=== PATIENT | male | born 1980 | race Caucasian/White ===

== ENCOUNTER 2021-02-25 15:49 | Inpatient (IN) ==
[2021-02-25] MEDS ORDERED: dexAMETHasone**PF** 10 MG/ML VIAL IV ONE (16:01)
[2021-02-25 16:28] LABS: Basophils # (auto) 0.01 K/uL (0-0.2); Basophils % (auto) 0.2 %; Hematocrit (blood only) 48.9 % (42-52); Hemoglobin 16.3 g/dL (14.0-18.0); Immature Granulocytes # (auto) 0.01 K/uL (0.00-0.02); Immature Granulocytes % (auto) 0.2 %; Lymphocytes # (auto) 1.49 K/uL (1.2-3.4); Lymphocytes % (auto) 28.4 %; Mean Corpuscular Hemoglobin 30.5 pg (25-34); Mean Corpuscular Hgb Conc 33.3 g/dL (32-36); Mean Corpuscular Volume 91.6 fL (80-100); Mean Platelet Volume 11.3 fL (7.4-10.4); Monocytes # (auto) 0.51 K/uL (0.11-0.59); Monocytes % (auto) 9.7 %; Neutrophils # (auto) 3.23 K/uL (1.4-6.5); Neutrophils % (auto) 61.5 %; Platelet Count 148 K/uL (130-400); RDW Coefficient of Variation 12.5 % (11.5-14.5); RDW Standard Deviation 42.2 fL (36.4-46.3); Red Blood Count 5.34 M/uL (4.7-6.1); White Blood Count 5.25 K/uL (4.8-10.8)
--- NOTE | 2021-02-25 16:30 | XRay Report ---
XR chest 1V portable HISTORY: Short of breath. Covid positive. COMPARISON: Chest 02/24/2021. FINDINGS: No pneumothorax or no pleural effusions. The heart is normal in size. There are low lung vo lumes. Multifocal peripheral patchy airspace opacities are again noted. This likely represents a tera l pneumonia. This is similar to the prior study. IMPRESSION: Redemonstration of the multifocal bilateral airspace opacities consistent with a viral pneumonia. ACT 112: Negative or not required by law. Electronically signed by: Maikel Gutierrez M.D. 02/25/2021 4:29 PM
[2021-02-25 16:49] LABS: Alanine Aminotransferase 184 (12-78); Albumin Level 3.3 gm/dl (3.4-5.0); Aspartate Aminotransferase 202 U/L (15-37); BUN Creatinine Ratio 11.1 (10-20); Blood Urea Nitrogen 11 mg/dl (7-18); Carbon Dioxide 29 mmol/L (21-32); Chloride 98 mmol/L (98-107); Creatinine Clr Calc Pharmacy 136.3 ml/min; Est GFR (African American) 107.9 ml/min; Est GFR (Non-African American) 93.1 ml/min; Glucose 114 mg/dl (70-99); Potassium 4.3 mmol/L (3.5-5.1); Sodium 133 mmol/L (136-145)
[2021-02-25 16:53] LABS: Albumin Globulin Ratio 0.8 (0.9-2); Alkaline Phosphatase 45 U/L (45-117); Bilirubin,Total 0.4 mg/dl (0.2-1); C Reactive Protein 6.58 mg/dl (0-0.29); Globulin 4.1 gm/dl (2.5-4.0); Total Protein 7.4 gm/dl (6.4-8.2); Troponin I < 0.015 ng/ml (0-0.045)
--- NOTE | 2021-02-25 17:12 | Emergency Department Note ---
History of Present Illness General Chief complaint: Respiratory Problems Stated complaint: COVID+, WAS ASKED TO RETURN TO ER TODAY Time Seen by Provider: 02/25/21 16:01 Source: patient Mode of arrival: ambulatory Limitations: no limitations History of Present Illness This patient is a 40-year-old male who presents to the emergency department for evaluation of COVID-19 and shortness of breath. Patient states that his symptoms started 4 days ago. He has had shortness of breath, body aches and cough. He was here yesterday and had a COVID-19 test which was positive, however he left the waiting room prior to being seen by provider. He has not been vaccinated for COVID-19. He has been taking Tylenol as needed for fevers. He denies any chest pain. Home Medications Medication Instructions Recorded Confirmed Type No Known Home Medications 02/25/21 02/25/21 History Allergies Allergy/AdvReac Type Severity Reaction Status Date / Time Penicillins Allergy Unknown Had a Unverified 02/25/21 16:59 reaction as a baby, but has had it since without one Past Med/Surg History Medical History No significant past medical history Social History Smoking Status: Never smoker Feels Safe at Home: Yes Review of Systems A total of 10 systems reviewed and were otherwise negative Physical Exam Vital Signs Vital Signs - 24 hr 02/25/21 15:58 02/25/21 16:01 02/25/21 16:10 Temperature 36.6 C Temperature Source Temporal Artery Scan Pulse Rate 99 H Respiratory Rate 18 Blood Pressure 121/79 Blood Pressure Mean 93 Pulse Oximetry 87 L 87 L 94 Oxygen Delivery Method Room Air Room Air Nasal Cannula Oxygen Flow Rate 2 Sepsis Recent Fever Within 48 Hours No Sepsis New/Unexplained Change in Mental Status N/A Sepsis Action Taken by Nursing No Action Required 02/25/21 16:49 Temperature Temperature Source Pulse Rate Respiratory Rate Blood Pressure Blood Pressure Mean Pulse Oximetry 92 Oxygen Delivery Method Nasal Cannula Oxygen Flow Rate 3 Sepsis Recent Fever Within 48 Hours Sepsis New/Unexplained Change in Mental Status Sepsis Action Taken by Nursing VITALS: Vitals are noted on the nurse's note and reviewed by myself. GENERAL: This is a 40-year-old male, in no acute distress, well-developed well- nourished. SKIN: The skin was without rashes. EARS: External auditory canals clear, tympanic membranes pearly jackson without erythema or effusion bilaterally. EYES: Pupils equal round and reactive to light and accommodation. NOSE: Patent, turbinates without inflammation or discharge. No sinus tenderness. MOUTH: Mucous membranes moist. Tonsils are not enlarged. Pharynx without erythema or exudate. Uvula midline. NECK: Supple without nuchal rigidity. No lymphadenopathy. HEART: Regular rate and rhythm without murmurs gallops or rubs. LUNGS: Coarse breath sounds throughout. Diminished breath sounds in bilateral bases. EXTREMITIES: No pitting edema of the lower extremities. NEURO: Patient was alert and oriented to person place and time. Course Administered Medications Discontinued Medications Dexamethasone Sodium Phosphate (DexamethasonePf 10 Mg/Ml Vial) 6 mg IV NOW ONE Stop: 02/25/21 16:02 Last Admin: 02/25/21 19:27 Dose: 6 mg Documented by: [id number] Medical Decision Making Differential Diagnosis COVID-19, reactive airway disease, pneumonia, pneumothorax, COPD, CHF, infections, cardiac ischemia, pulmonary embolism, musculoskeletal, gastrointestinal, as well as other pathologies. Home Medications Current Medication List: was personally reviewed by me Laboratory Data Attestation: I reviewed the patient's lab results. Result diagrams: 02/25/21 16:11 02/25/21 16:11 Lab Results 02/25/21 02/25/21 02/25/21 Range/Units 16:11 16:11 16:11 WBC 5.25 (4.8-10.8) K/uL RBC 5.34 (4.7-6.1) M/uL Hgb 16.3 (14.0-18.0) g/dL Hct 48.9 (42-52) % MCV 91.6 (80-100) fL MCH 30.5 (25-34) pg MCHC 33.3 (32-36) g/dL RDW Std Deviation 42.2 (36.4-46.3) fL RDW Coeff of Nazario 12.5 (11.5-14.5) % Plt Count 148 (130-400) K/uL MPV 11.3 H (7.4-10.4) fL Immature Gran % (Auto) 0.2 % Neut % (Auto) 61.5 % Lymph % (Auto) 28.4 % Page % (Auto) 9.7 % Eos % (Auto) 0.0 % Baso % (Auto) 0.2 % Neut # (Auto) 3.23 (1.4-6.5) K/uL Lymph # (Auto) 1.49 (1.2-3.4) K/uL Page # (Auto) 0.51 (0.11-0.59) K/uL Eos # (Auto) 0.00 (0-0.5) K/uL Baso # (Auto) 0.01 (0-0.2) K/uL Immature Gran # (Auto) 0.01 (0.00-0.02) K/uL Sodium 133 L (136-145) mmol/L Potassium 4.3 (3.5-5.1) mmol/L Chloride 98 (98-107) mmol/L Carbon Dioxide 29 (21-32) mmol/L Anion Gap 6.0 (3-11) BUN 11 (7-18) mg/dl Creatinine 1.00 (0.6-1.4) mg/dl Est Cr Clr Drug Dosing 136.3 ml/min Est GFR ( Amer) 107.9 ml/min Est GFR (Non-Af Amer) 93.1 ml/min BUN/Creatinine Ratio 11.1 (10-20) Glucose 114 H (70-99) mg/dl Calcium 9.0 (8.5-10.1) mg/dl Total Bilirubin 0.4 (0.2-1) mg/dl AST 202 H (15-37) U/L ALT 184 H (12-78) Alkaline Phosphatase 45 (45-117) U/L Troponin I < 0.015 (0-0.045) ng/ml C-Reactive Protein 6.58 H (0-0.29) mg/dl Total Protein 7.4 (6.4-8.2) gm/dl Albumin 3.3 L (3.4-5.0) gm/dl Globulin 4.1 H (2.5-4.0) gm/dl Albumin/Globulin Ratio 0.8 L (0.9-2) Procalcitonin 0.12 (0-0.5) ng/ml Hep Bs Antigen (Neg) Hepatitis C Antibody (Neg) 12/30/21 Range/Units 16:11 WBC (4.8-10.8) K/uL RBC (4.7-6.1) M/uL Hgb (14.0-18.0) g/dL Hct (42-52) % MCV (80-100) fL MCH (25-34) pg MCHC (32-36) g/dL RDW Std Deviation (36.4-46.3) fL RDW Coeff of Nazario (11.5-14.5) % Plt Count (130-400) K/uL MPV (7.4-10.4) fL Immature Gran % (Auto) % Neut % (Auto) % Lymph % (Auto) % Page % (Auto) % Eos % (Auto) % Baso % (Auto) % Neut # (Auto) (1.4-6.5) K/uL Lymph # (Auto) (1.2-3.4) K/uL Page # (Auto) (0.11-0.59) K/uL Eos # (Auto) (0-0.5) K/uL Baso # (Auto) (0-0.2) K/uL Immature Gran # (Auto) (0.00-0.02) K/uL Sodium (136-145) mmol/L Potassium (3.5-5.1) mmol/L Chloride (98-107) mmol/L Carbon Dioxide (21-32) mmol/L Anion Gap (3-11) BUN (7-18) mg/dl Creatinine (0.6-1.4) mg/dl Est Cr Clr Drug Dosing ml/min Est GFR ( Amer) ml/min Est GFR (Non-Af Amer) ml/min BUN/Creatinine Ratio (10-20) Glucose (70-99) mg/dl Calcium (8.5-10.1) mg/dl Total Bilirubin (0.2-1) mg/dl AST (15-37) U/L ALT (12-78) Alkaline Phosphatase (45-117) U/L Troponin I (0-0.045) ng/ml C-Reactive Protein (0-0.29) mg/dl Total Protein (6.4-8.2) gm/dl Albumin (3.4-5.0) gm/dl Globulin (2.5-4.0) gm/dl Albumin/Globulin Ratio (0.9-2) Procalcitonin (0-0.5) ng/ml Hep Bs Antigen Neg (Neg) Hepatitis C Antibody Neg (Neg) Imaging Data Attestation: I personally reviewed and interpreted this imaging study as follows: Radiologist's Impression: Chest X-Ray 02/25/21 16:02 XR chest 1V portable HISTORY: Short of breath. Covid positive. COMPARISON: Chest 02/24/2021. FINDINGS: No pneumothorax or no pleural effusions. The heart is normal in size. There are low lung volumes. Multifocal peripheral patchy airspace opacities are again noted. This likely represents a viral pneumonia. This is similar to the prior study. IMPRESSION: Redemonstration of the multifocal bilateral airspace opacities consistent with a viral pneumonia. ACT 112: Negative or not required by law. Electronically signed by: Maikel Gutierrez M.D. 02/25/2021 4:29 PM MDM Narrative Continuous patient monitor: Order was placed for continuous patient monitor. Patient was placed on the patient monitor. Patient was noted to be in normal sinus rhythm at an initial rate of 90 bpm. The patient is a 40-year-old male who presents today complaining of shortness of breath. Patient was in the emergency department yesterday, was triaged and received a COVID-19 test but left prior to seeing a provider. His COVID-19 test was found to be positive at that time. Patient is here today due to shortness of breath. He was found to be hypoxic with an oxygen saturation of 87% on room air. Patient was placed on oxygen via nasal cannula with improvement. Labs revealed a transaminitis, most likely due to the COVID-19 infection. Chest x-ray is consistent with multifocal pneumonia. Due to patient's hypoxia, consultation was placed with the [facility] hospitalist service. Impression & Plan COVID-19, Acute respiratory failure with hypoxia, Transaminitis Discharge Plan Visit Data Chief Complaint: Respiratory Problems Stated Complaint: COVID+, WAS ASKED TO RETURN TO ER TODAY ED Provider: Willie Doss ED Midlevel Provider: Dania Charles Discharge Problem: COVID-19, Acute respiratory failure with hypoxia, Transaminitis Discharge Instructions Interventions: ED Discharge Assessment Last Done: 02/25/21 19:39
--- NOTE | 2021-02-25 17:25 | History & Physical Report ---
Date of Service February 25, 2021 Assessment & Plan (1) Acute respiratory failure with hypoxia: Plan: Acute hypoxic respiratory failure 2/2 COVID-19 pneumonia No leukocytosis Mild hyponatremia to 133. Suspect nutritional with decreased p.o. intake for last few days, defer SIADH fluid restriction at this time. Transaminitis as below Troponin negative CRP elevated to 6.58 Procalcitonin pending CXR:multifocal bilateral airspace opacities consistent with a viral pneumonia. Admit on dexamethasone Covid Lovenox prophylaxis Remdesivir deferred due to transaminitisbaricitinib not indicated at this time CTA deferred at time of admission, threshold if clinically worsening (2) Transaminitis: Plan: Transaminitis AST/ALT 202/184. No history of prior liver disease Patient i is approximately 12 beers through the weekend reports does not drink and is alcohol free through the week T bili and alk phos normal Weekend alcohol use Ultrasound liver pending Acute hepatitis panel pending CMP daily (3) COVID-19: Plan: As above Plan: DVT prophylaxis: Covid dosed Lovenox as above Diet: Regular Disposition: Medical surgical CODE STATUS: Full code History of Present Illness Chief Complaint: COVID Primary Care Provider: NO PCP Willie Gillespie is a 40-year-old male with no prior past medical history who presents with acute hypoxic respiratory failure 2/2 Covid pneumonia, unvaccinated. Symptom onset approximately 02/21/2021 (approximately day 5 at presentation to ER) Hypoxic requiring 3 L of nasal cannula in ER to maintain sat greater than 88% No prior lung disease, no prior cardiac disease, no home medications Shortness of breath started first with a dry cough. Minimal clear mucous production. No fevers, sweats. Chills earlier in the week none now. No chest pain, chest pressure, palpitations. No nausea, vomiting, diarrhea, or constipation. Diminished appetite with reduced PO intake. No history of renal or hepatic disease. Has been taking Alieve 4 pills daily max, NYQUIL 1 cap in the morning and evening. no other attempted tx Medical History: Reviewed Medications: Reviewed Surgical History: Reviewed Allergies: Reviewed Social History: No tobacco use. Social alcohol use, 12 pack in a weekend none during the week. No recreational drug use. Code Status: Full Code Allergies Allergy/AdvReac Type Severity Reaction Status Date / Time Penicillins Allergy Unknown Had a Unverified 02/25/21 16:59 reaction as a baby, but has had it since without one Home Medications Medication Instructions Recorded Confirmed Type No Known Home Medications 02/25/21 02/25/21 History Past Med/Surg History Medical History No significant past medical history Social History Smoking Status: Never smoker Feels Safe at Home: Yes Review of Systems Review of Systems: All systems reviewed & are unremarkable except as noted in HPI & below Physical Exam Physical Exam: General: A&Ox3. NAD. Cooperative. HEENT: Atraumatic, normocephalic. On nasal cannula. Pupils equal and reactive to light. Acuity and hearing grossly intact. Pulm: Moderate air movement, bibasilar crackles without overt wheezes/rales. Symmetrical chest rise. No increase in work of breathing. No respiratory distress. Cardiac: RRR, -mrg. Radial pulses intact and symmetrical. Abdominal: Nontender, nondistended, soft. BS present. Extremities: Moving all extremities equally, patient ambulating independently in room. Customer Contact Representative strength, hip flexion, ankle dorsiflexion/plantar flexion 5/5 without deficit/asymmetry. Sensation is soft touch intact in hands and feet. Skin warm and dry. Results & Data Results & Data ([facility]) Vital Signs (Past 12 Hours) Vital Signs Temp Pulse Resp BP Pulse Ox 02/25/21 16:49 92 02/25/21 16:10 94 02/25/21 16:01 87 L 02/25/21 15:58 36.6 C 99 H 18 121/79 87 L PG Care Time/CCT Total # of Minutes Spent Total Time Spent with Patient: Total time spent is greater than 50% in coordination of care (as documented) at patient's floor/unit and/or counseling patient: Coding Level of Care Code 41748 Initial Inpt Care Lvl 3 Diagnoses Transaminitis R74.01 Acute respiratory failure with hypoxia J96.01 COVID-19 U07.1
[2021-02-25 18:24] LABS: Hepatitis B Surf Ag Rflx Conf Neg (Neg)
[2021-02-25 18:52] LABS: Hepatitis C IgG 13Yrs+Old_Rflx Neg (Neg)
[2021-02-25] MEDS ORDERED: ACETAMINOPHEN 325 MG TAB PO PRN (19:30)
[2021-02-25] MEDS ORDERED: ONDANSETRON INJ 2 MG/ML 2 ML VIAL IV PRN (19:30)
[2021-02-25] MEDS: ENOXAPARIN INJ 40 MG/0.4 ML SYR SQ SCH (22:51)
[2021-02-26] MEDS: ENOXAPARIN INJ 40 MG/0.4 ML SYR SQ SCH ×2 (08:00→20:57)
[2021-02-26] MEDS: dexAMETHasone 6 MG in SYRINGE 0 ML IV SCH (08:01)
--- NOTE | 2021-02-26 11:48 | Hospitalist Progress Note ---
Date of Service February 26, 2021 Assessment & Plan (1) Acute respiratory failure with hypoxia: Plan: Acute hypoxic respiratory failure 2/2 COVID-19 pneumonia sick for 7 days on admission dexamethasone 6mg IV daily repeat AST ALT today to see if they are normal, consider Remdesivir since he is within window no role for baricitinib Lasix 20mg IV daily starting tomorrow flutter valve, incentive spirometer encourage him to lay prone often (2) Transaminitis: Plan: Transaminitis AST/ALT 202/184. No history of prior liver disease Patient i is approximately 12 beers through the weekend reports does not drink and is alcohol free through the week likely from COVID repeat CMP today hold on liver US (3) COVID-19: Plan: As above dexamethasone 6mg IV daily consider Remdesivir encourage him to eat and drink Plan: DVT prophylaxis: Covid dosed Lovenox as above Diet: Regular Disposition: Medical surgical CODE STATUS: Full code Admission and Anticipated Discharge Date Admission Date: February 25, 2021 Subjective patient sitting up at edge of bed, he is up to 6L from 3L this morning no distress, he says he gets a little short of breath walking to toilet but recovers quickly has a slight cough with sputum but not often, mild dyspnea, no chest pain, no fever drinking a lot of water, not much of an appetite he confirms he is about 7 days into illness encouraged him to lay prone, will get him flutter valve and use incentive spirometer discussed that once his oxygen is down to 2-3L will get him home Review of Systems Review of Systems: All systems reviewed & are unremarkable except as noted in Subjective Respiratory: + cough, + dyspnea and + dyspnea on exertion Physical Exam Physical Exam: General: well developed, overweight male, no acute distress, comfortable Neck: supple, trachea midline, normal thyroid Lungs: clear to auscultation bilaterally, slightly tachypneic, no accessory muscle use, no distress Heart: regular S1 and S2, no murmur, peripheral pulses normal, capillary refill normal, no edema Abdomen: soft, NT, ND, + BS, no hepatomegaly, normal to percussion Extremities: normal in appearance, no cyanosis, no petechiae, strength is 5/5 bilaterally Neuro: awake, cooperative, moves all extremities, no focal motor deficits, CN II-XII intact, sensation in extremities intact, normal speech Skin: warm, dry, no rash, normal turgor Psych: Awake, alert oriented x 3, euthymic affect Results & Data Results & Data ([facility]) Vital Signs (Past 12 Hours) Vital Signs Temp Pulse Resp BP Pulse Ox 02/26/21 08:00 36.9 C 80 18 132/68 91 Medications Administered Current Inpatient Medications Acetaminophen (Acetaminophen 325 Mg Tab) 650 mg PO Q4H PRN PRN Reason: pain/fever Stop: 03/27/21 19:29 Enoxaparin Sodium (Enoxaparin Inj 40 Mg/0.4 Ml Syr) 40 mg SQ Q12H DENYS Stop: 03/27/21 20:59 Last Admin: 02/26/21 08:00 Dose: 40 mg Documented by: Dexamethasone 6 mg/ Syringe 1.5 mls @ 1 mls/min IV DAILY DENYS Stop: 03/08/21 08:59 Last Admin: 02/26/21 08:01 Dose: 1 mls/min Documented by: Ondansetron HCl (Ondansetron Inj 2 Mg/Ml 2 Ml Vial) 4 mg IV Q6H PRN PRN Reason: Nausea Stop: 03/27/21 19:29 PG Care Time/CCT Total # of Minutes Spent Total Time Spent with Patient: Total time spent is greater than 50% in coordination of care (as documented) at patient's floor/unit and/or counseling patient: Coding Level of Care Code 00692 Subseq Hosp Care Lvl 2 Diagnoses Acute respiratory failure with hypoxia J96.01 Transaminitis R74.01 COVID-19 U07.1
[2021-02-26 12:15] LABS: Albumin Globulin Ratio 0.7 (0.9-2); Albumin Level 3.2 gm/dl (3.4-5.0); Bilirubin,Total 0.5 mg/dl (0.2-1); C Reactive Protein 4.2 mg/dl (0-0.29); Calcium 9.3 mg/dl (8.5-10.1); Creatinine Clr Calc Pharmacy 128.6 ml/min; Est GFR (African American) 100.5 ml/min; Est GFR (Non-African American) 86.7 ml/min; Globulin 4.3 gm/dl (2.5-4.0); Total Protein 7.5 gm/dl (6.4-8.2)
[2021-02-27] MEDS ORDERED: MELATONIN 3 MG TAB PO PRN (04:55)
[2021-02-27] MEDS ORDERED: LORazepam 0.5 MG/1 ML VIAL IV STA (07:36)
[2021-02-27] MEDS: dexAMETHasone 6 MG in SYRINGE 0 ML IV SCH (07:42)
[2021-02-27] MEDS: FUROSEMIDE INJ 20 MG/2 ML VIAL IV SCH (07:43)
[2021-02-27] MEDS: ENOXAPARIN INJ 40 MG/0.4 ML SYR SQ SCH ×2 (07:43→20:40)
[2021-02-27 07:45] LABS: Albumin Level 3.1 gm/dl (3.4-5.0); BUN Creatinine Ratio 16.7 (10-20); Calcium 9.1 mg/dl (8.5-10.1); Creatinine Clr Calc Pharmacy 128.6 ml/min; Est GFR (African American) 100.5 ml/min; Est GFR (Non-African American) 86.7 ml/min; Potassium 4.5 mmol/L (3.5-5.1)
[2021-02-27 07:48] LABS: Albumin Globulin Ratio 0.8 (0.9-2); Bilirubin,Total 0.5 mg/dl (0.2-1); Total Protein 7.1 gm/dl (6.4-8.2)
[2021-02-27] MEDS ORDERED: LORazepam 2 MG/4 ML VIAL ONE (07:53)
--- NOTE | 2021-02-27 09:22 | XRay Report ---
XR chest 1V portable HISTORY: 40 years-old Male covid pneumonia acute shortness of breath COMPARISON: Chest radiograph 02/25/2021 TECHNIQUE: Portable AP view of the chest FINDINGS: Cardiac silhouette is enlarged. No pneumothorax. Probable trace pleural effusions. Interstitial coars ening with patchy multifocal airspace opacities, slightly progressed from prior. Degenerative changes of the shoulders and spine. IMPRESSION: Slight progression of the multifocal airspace opacities suggestive of viral pneumonia. ACT 112: Negative or not required by law. The above report was generated using voice recognition software. It may contain grammatical, syntax o r spelling errors. Electronically signed by: Michael Valenzuela M.D. 02/27/2021 9:21 AM
--- NOTE | 2021-02-27 10:05 | Electrocardiogram Report ---
Test Reason : Blood Pressure : / mmHG Vent. Rate : 100 BPM Atrial Rate : 100 BPM P-R Int : 132 ms QRS Dur : 094 ms QT Int : 334 ms P-R-T Axes : 026 038 028 degrees QTc Int : 430 ms Poor data quality, interpretation may be adversely affected Normal sinus rhythm Normal ECG When compared with ECG of 14-AUG-2017 15:23, No significant change was found Confirmed by Arnol Ndiaye ([id number]) on 02/27/2021 10:05:32 AM Referred By: REFERRED SELF Confirmed By:Arnol Ndiaye
--- NOTE | 2021-02-27 10:50 | Hospitalist Progress Note ---
Date of Service February 27, 2021 Assessment & Plan (1) Acute respiratory failure with hypoxia: Plan: Acute hypoxic respiratory failure 2/2 COVID-19 pneumonia sick for 7 days prior to admission dexamethasone 6mg IV daily AST/ALT too high for Remdesivir no role for baricitinib, CRP is only 4 Lasix 20mg IV daily starting today to keep lungs dry CXR 02/27/21 shows slight progression of infiltrates on 10L when laying prone, increased to 15L sitting in chair flutter valve, incentive spirometer encourage him to lay prone, he slept all night on his belly and doing it intermittently during the day (2) COVID-19: Plan: As above dexamethasone 6mg IV daily no Remdesivir due to transaminitis encourage him to eat and drink (3) Transaminitis: Plan: Transaminitis Patient drinks approximately 12 beers through the weekend but is alcohol free through the week likely from COVID repeat CMP shows AST/ALT coming down hold on liver US (4) Anxiety: Plan: good response to Ativan will give 0.5 PO q8 PRN Plan: DVT prophylaxis: Covid dosed Lovenox as above Diet: Regular Disposition: Medical surgical CODE STATUS: Full code Admission and Anticipated Discharge Date Admission Date: February 25, 2021 Subjective very anxious this morning, gave him Ativan 0.5mg IV x 1 he slept on his belly all night, he was 10L but had to bump him to 15L when he got OOB to chair to eat labs show CRP 4.2, Cr 1.06, K 4.5, AST 98 and ALT 134 CXR this morning shows slight progression of infiltrates he says last night was rough, he was "going crazy" told him we can try Ativan q8 PRN for anxiety, he says that would be good no cough, no fever, no chest pain, appetite is normal Review of Systems Review of Systems: All systems reviewed & are unremarkable except as noted in Subjective Physical Exam Physical Exam: General: well developed, overweight male, no acute distress, comfortable Neck: supple, trachea midline, normal thyroid Lungs: clear to auscultation bilaterally, slightly tachypneic, no accessory muscle use, no distress Heart: regular S1 and S2, no murmur, peripheral pulses normal, capillary refill normal, no edema Abdomen: soft, NT, ND, + BS, no hepatomegaly, normal to percussion Extremities: normal in appearance, no cyanosis, no petechiae, strength is 5/5 bilaterally Neuro: awake, cooperative, moves all extremities, no focal motor deficits, CN II-XII intact, sensation in extremities intact, normal speech Skin: warm, dry, no rash, normal turgor Psych: Awake, alert oriented x 3, euthymic affect Results & Data Results & Data ([facility]) Vital Signs (Past 12 Hours) Vital Signs Temp Pulse Resp BP Pulse Ox 02/27/21 08:25 36.9 C 02/27/21 07:31 38.2 C H 103 H 19 120/77 92 02/26/21 23:05 36.6 C 89 22 129/76 94 Laboratory Results Laboratory Results - last 24 hr 02/26/21 02/27/21 11:33 06:24 Sodium 133 L 134 L Potassium 5.0 D 4.5 Chloride 98 96 L Carbon Dioxide 31 32 Anion Gap 4.0 6.0 BUN 16 18 Creatinine 1.06 1.06 Est Cr Clr Drug Dosing 128.6 128.6 Est GFR ( Amer) 100.5 100.5 Est GFR (Non-Af Amer) 86.7 86.7 BUN/Creatinine Ratio 15.0 16.7 Glucose 140 H 111 H Calcium 9.3 9.1 Total Bilirubin 0.5 0.5 AST 131 H 98 H ALT 162 H 134 H Alkaline Phosphatase 48 46 C-Reactive Protein 4.20 H Total Protein 7.5 7.1 Albumin 3.2 L 3.1 L Globulin 4.3 H 4.0 Albumin/Globulin Ratio 0.7 L 0.8 L Medications Administered Current Inpatient Medications Acetaminophen (Acetaminophen 325 Mg Tab) 650 mg PO Q4H PRN PRN Reason: pain/fever Stop: 03/27/21 19:29 Last Admin: 02/27/21 07:42 Dose: 650 mg Documented by: Enoxaparin Sodium (Enoxaparin Inj 40 Mg/0.4 Ml Syr) 40 mg SQ Q12H [facility] Stop: 03/27/21 20:59 Last Admin: 02/27/21 07:43 Dose: 40 mg Documented by: Furosemide (Furosemide Inj 20 Mg/2 Ml Vial) 20 mg IV QAM [facility] Stop: 03/29/21 08:59 Last Admin: 02/27/21 07:43 Dose: 20 mg Documented by: Dexamethasone 6 mg/ Syringe 1.5 mls @ 1 mls/min IV DAILY DENYS Stop: 03/08/21 08:59 Last Admin: 02/27/21 07:42 Dose: 1 mls/min Documented by: Melatonin (Melatonin 3 Mg Tab) 3 mg PO HS PRN PRN Reason: Sleep Stop: 03/29/21 04:54 Ondansetron HCl (Ondansetron Inj 2 Mg/Ml 2 Ml Vial) 4 mg IV Q6H PRN PRN Reason: Nausea Stop: 03/27/21 19:29 PG Care Time/CCT Total # of Minutes Spent Total Time Spent with Patient: Total time spent is greater than 50% in coordination of care (as documented) at patient's floor/unit and/or counseling patient: Coding Level of Care Code 24627 Subseq Hosp Care Lvl 3 Diagnoses Acute respiratory failure with hypoxia J96.01 Transaminitis R74.01 COVID-19 U07.1 Anxiety F41.9
[2021-02-27] MEDS: LORazepam 0.5 MG TAB PO PRN (20:40)
[2021-02-28 07:04] LABS: Albumin Level 2.8 gm/dl (3.4-5.0); BUN Creatinine Ratio 23.4 (10-20); Calcium 8.8 mg/dl (8.5-10.1); Creatinine Clr Calc Pharmacy 158.5 ml/min; Est GFR (African American) 124.8 ml/min; Est GFR (Non-African American) 107.7 ml/min; Potassium 4.3 mmol/L (3.5-5.1)
[2021-02-28 07:07] LABS: Albumin Globulin Ratio 0.8 (0.9-2); Bilirubin,Total 0.5 mg/dl (0.2-1); C Reactive Protein 3.25 mg/dl (0-0.29); Globulin 3.7 gm/dl (2.5-4.0); Total Protein 6.5 gm/dl (6.4-8.2)
[2021-02-28] MEDS: ENOXAPARIN INJ 40 MG/0.4 ML SYR SQ SCH ×2 (10:53→21:02)
[2021-02-28] MEDS: dexAMETHasone 6 MG in SYRINGE 0 ML IV SCH (10:53)
[2021-02-28] MEDS: FUROSEMIDE INJ 20 MG/2 ML VIAL IV SCH (10:53)
[2021-02-28] MEDS: LORazepam 0.5 MG TAB PO PRN ×2 (10:53→20:53)
--- NOTE | 2021-02-28 11:44 | Hospitalist Progress Note ---
Date of Service February 28, 2021 Assessment & Plan (1) Acute respiratory failure with hypoxia: Plan: Acute hypoxic respiratory failure 2/2 COVID-19 pneumonia sick for 7 days prior to admission dexamethasone 6mg IV daily, day 4 AST/ALT too high for Remdesivir no role for baricitinib, CRP is only 3 and only on 13L NC Lasix 20mg IV daily, Cr is stable CXR 02/27/21 shows slight progression of infiltrates on 10L when laying prone, on 13L while in chair flutter valve, incentive spirometer (pulling 1500mL tidal volume) encourage him to lay prone, he slept all night on his belly and doing it intermittently during the day (2) COVID-19: Plan: no fever, vitals stable, overall feeling better dexamethasone 6mg IV daily no Remdesivir due to transaminitis encourage him to eat and drink (3) Transaminitis: Plan: Transaminitis Patient drinks approximately 12 beers through the weekend but is alcohol free through the week likely from COVID repeat CMP shows AST/ALT coming down but still a little high (4) Anxiety: Plan: good response to Ativan will give 0.5 PO q8 PRN Plan: DVT prophylaxis: Covid dosed Lovenox as above Diet: Regular Disposition: Medical surgical CODE STATUS: Full code Admission and Anticipated Discharge Date Admission Date: February 25, 2021 Subjective patient doing well, sitting up in chair, on 13L he is pulling 1500mL on incentive spirometer he is sleeping all night on stomach or side, encouraged him to do it during the day eating and drinking well reviewed labs, CRP down to 2, Cr stable, AST and ALT up he asked about Remdesivir, discussed that we did not give it due to transaminitis also, unlikely it would help him as this point, beyond the viral replication phase he asked about timeframe for discharge, told him by end of this upcoming week, maybe sooner Review of Systems Review of Systems: All systems reviewed & are unremarkable except as noted in Subjective Respiratory: + cough, + dyspnea and + dyspnea on exertion Physical Exam Physical Exam: General: well developed, overweight male, no acute distress, comfortable Neck: supple, trachea midline, normal thyroid Lungs: clear to auscultation bilaterally, slightly tachypneic, no accessory muscle use, no distress Heart: regular S1 and S2, no murmur, peripheral pulses normal, capillary refill normal, no edema Abdomen: soft, NT, ND, + BS, no hepatomegaly, normal to percussion Extremities: normal in appearance, no cyanosis, no petechiae, strength is 5/5 bilaterally Neuro: awake, cooperative, moves all extremities, no focal motor deficits, CN II-XII intact, sensation in extremities intact, normal speech Skin: warm, dry, no rash, normal turgor Psych: Awake, alert oriented x 3, euthymic affect Results & Data Results & Data ([facility]) Vital Signs (Past 12 Hours) Vital Signs Temp Pulse Resp BP Pulse Ox 02/28/21 07:28 36.6 C 83 16 109/66 89 L Laboratory Results Laboratory Results - last 24 hr 02/28/21 06:11 Sodium 134 L Potassium 4.3 Chloride 98 Carbon Dioxide 34 H Anion Gap 2.0 L BUN 20 H Creatinine 0.86 Est Cr Clr Drug Dosing 158.5 Est GFR ( Amer) 124.8 Est GFR (Non-Af Amer) 107.7 BUN/Creatinine Ratio 23.4 H Glucose 113 H Calcium 8.8 Total Bilirubin 0.5 AST 78 H ALT 131 H Alkaline Phosphatase 43 L C-Reactive Protein 3.25 H Total Protein 6.5 Albumin 2.8 L Globulin 3.7 Albumin/Globulin Ratio 0.8 L Medications Administered Current Inpatient Medications Acetaminophen (Acetaminophen 325 Mg Tab) 650 mg PO Q4H PRN PRN Reason: pain/fever Stop: 03/27/21 19:29 Last Admin: 02/27/21 07:42 Dose: 650 mg Documented by: Enoxaparin Sodium (Enoxaparin Inj 40 Mg/0.4 Ml Syr) 40 mg SQ Q12H DENYS Stop: 03/27/21 20:59 Last Admin: 02/28/21 10:53 Dose: 40 mg Documented by: Furosemide (Furosemide Inj 20 Mg/2 Ml Vial) 20 mg IV QAM DENYS Stop: 03/29/21 08:59 Last Admin: 02/28/21 10:53 Dose: 20 mg Documented by: Dexamethasone 6 mg/ Syringe 1.5 mls @ 1 mls/min IV DAILY DENYS Stop: 03/08/21 08:59 Last Admin: 02/28/21 10:53 Dose: 1 mls/min Documented by: Lorazepam (Lorazepam 0.5 Mg Tab) 0.5 mg PO Q8 PRN PRN Reason: Anxiety Stop: 03/29/21 10:55 Last Admin: 02/28/21 10:53 Dose: 0.5 mg Documented by: Melatonin (Melatonin 3 Mg Tab) 3 mg PO HS PRN PRN Reason: Sleep Stop: 03/29/21 04:54 Ondansetron HCl (Ondansetron Inj 2 Mg/Ml 2 Ml Vial) 4 mg IV Q6H PRN PRN Reason: Nausea Stop: 03/27/21 19:29 PG Care Time/CCT Total # of Minutes Spent Total Time Spent with Patient: Total time spent is greater than 50% in coordination of care (as documented) at patient's floor/unit and/or counseling patient: Coding Level of Care Code 02714 Subseq Hosp Care Lvl 3 Diagnoses Acute respiratory failure with hypoxia J96.01 COVID-19 U07.1 Transaminitis R74.01 Anxiety F41.9
--- NOTE | 2021-03-01 08:00 | Hospitalist Progress Note ---
Date of Service March 01, 2021 Assessment & Plan (1) Acute respiratory failure with hypoxia: Plan: Acute hypoxic respiratory failure 2/2 COVID-19 pneumonia sick for 7 days prior to admission dexamethasone 6mg IV daily, strted 02/25 AST/ALT too high for Remdesivir did not meet criteria for baricitinib, CRP not elevated Lasix 20mg IV daily, Cr is stable CXR 02/27/21 shows slight progression of infiltrates flutter valve, incentive spirometer (pulling 1500mL tidal volume) encourage him to lay prone, he slept all night on his belly and doing it intermittently during the day (2) COVID-19: Plan: no fever, vitals stable, overall feeling better dexamethasone 6mg IV daily no Remdesivir due to transaminitis encourage him to eat and drink (3) Transaminitis: Plan: Transaminitis ast 200 -> 78 Patient drinks approximately 12 beers through the weekend but is alcohol free through the week likely from COVID (4) Anxiety: Plan: good response to Ativan will give 0.5 PO q8 PRN Plan: DVT prophylaxis: Covid dosed Lovenox as above Diet: Regular Disposition: Medical surgical CODE STATUS: Full code Admission and Anticipated Discharge Date Admission Date: February 25, 2021 Results & Data Results & Data ([facility]) Vital Signs (Past 12 Hours) Vital Signs Temp Pulse Resp BP BP Pulse Ox 03/01/21 05:30 95 03/01/21 04:49 98.1 F 65 26 H 115/71 93 02/28/21 23:02 98.6 F 71 18 125/72 93 02/28/21 22:14 91 PG Care Time/CCT Total # of Minutes Spent Total Time Spent with Patient: Total time spent is greater than 50% in coordination of care (as documented) at patient's floor/unit and/or counseling patient: Coding Diagnoses Acute respiratory failure with hypoxia J96.01 COVID-19 U07.1 Transaminitis R74.01 Anxiety F41.9
[2021-03-01 09:41] LABS: Creatinine Clr Calc Pharmacy 153.4 ml/min; Est GFR (African American) 123.7 ml/min; Est GFR (Non-African American) 106.7 ml/min
[2021-03-01] MEDS: FUROSEMIDE INJ 20 MG/2 ML VIAL IV SCH (10:31)
[2021-03-01] MEDS: dexAMETHasone 6 MG in SYRINGE 0 ML IV SCH (10:32)
[2021-03-01] MEDS: ENOXAPARIN INJ 40 MG/0.4 ML SYR SQ SCH (10:32)
--- NOTE | 2021-03-01 14:43 | Discharge Summary ---
Date of Service March 01, 2021 Admission HPI Per Admitting Provider Willie Gillespie is a 40-year-old male with no prior past medical history who presents with acute hypoxic respiratory failure 2/2 Covid pneumonia, unvaccinated. Symptom onset approximately 02/21/2021 (approximately day 5 at presentation to ER) Hypoxic requiring 3 L of nasal cannula in ER to maintain sat greater than 88% No prior lung disease, no prior cardiac disease, no home medications Shortness of breath started first with a dry cough. Minimal clear mucous production. No fevers, sweats. Chills earlier in the week none now. No chest pain, chest pressure, palpitations. No nausea, vomiting, diarrhea, or constipa tion. Diminished appetite with reduced PO intake. No history of renal or hepatic disease. Has been taking Alieve 4 pills daily max, NYQUIL 1 cap in the morning and evening. no other attempted tx Medical History: Reviewed Medications: Reviewed Surgical History: Reviewed Allergies: Reviewed Social History: No tobacco use. Social alcohol use, 12 pack in a weekend none during the week. No recreational drug use. Code Status: Full Code Principal Diagnosis acute hypoxic respiratory failure covid pneumonia transaminitis Discharge Exam The patient appeared mild to moderate respiratory distress Vital signs as documented. Head exam is normocephalic atraumatic Neck is without JVD, thyromegaly, or carotid bruits. Lungs are coarse bilaterally in all lung suazo tachypnea Cardiac exam, Rhythm is regular.. No murmurs, rubs or gallops. Abdominal exam reveals normal bowel sounds, soft non tender, no masses Extremities are nonedematous and both pedal pulses are present Neurologic exam is alert and oriented, no focal loss of strength or sensation Skin is without bruises or rashes Psychologically is without concerns for anxiety or depression.. Discharge Data Allergies Allergy/AdvReac Type Severity Reaction Status Date / Time Penicillins Allergy Unknown Had a Unverified 02/25/21 16:59 reaction as a baby, but has had it since without one Hospital Course (1) Acute respiratory failure with hypoxia: Acute hypoxic respiratory failure 2/2 COVID-19 pneumonia sick for 7 days prior to admission dexamethasone 6mg strted 02/25 will have additional 1 week AST/ALT too high for Remdesivir did not meet criteria for baricitinib, CRP not elevated Walking oximetry testing shows the patient to require 2 L at rest 4 L with exertion. The patient still wants to go home says he feels well enough to go home. Patient given self-isolation instructions and told to follow-up his family doctor soon as possible flutter valve, incentive spirometer (pulling 1500mL tidal volume) encourage him to lay prone (2) COVID-19: no fever, vitals stable, overall feeling better dexamethasone 6mg daily no Remdesivir due to transaminitis encourage him to eat and drink (3) Transaminitis: Transaminitis ast 200 -> 78 Patient drinks approximately 12 beers through the weekend but is alcohol free through the week likely from COVID (4) Anxiety: this is improved greatly will need no further treatment at home CODE STATUS: Full code Total Time Total Time Spent Total Time Spent (In Minutes): It required greater than 30 minutes to prepare this patient for discharge Discharge Plan Discharge Items Patient Disposition: Home - Self-Care Reason For Visit: AHRF 2/2 COVID PNA Discharge Diagnosis: covid pneumonia Activity: Per Instructions section Activity Comment: slowly increase activity Non-emergency contact: Primary Care Provider Call non-emergency contact if: your symptoms worsen and you have a fever Follow-up/Referrals: PCP,NO [Primary Care Provider] - Diet: Regular Addtl Attending Provider Instructions: You have been diagnosed with covid infection, it would be recommended that you quarantine yourself for 10 days from your first test or first symptoms, and if at the 10th day you have no symptoms the you can come off quarantine but use common sense precautions. Quarantine means attempting to stay away from people who have not had an active covid infection in the past, and if you have to be around others to wear a mask even if you are indoors, do not share a room to sleep in with others until you are out of quarantine. If you still have symptoms at the 10th day, continue to quarantine until you are symptom free for 48 hours Pending Studies at Discharge: No Stand-Alone Forms: [employer], Smoking Cessation Medications and DC Order Prescriptions: New dexamethasone [Decadron] 6 mg tablet 6 mg PO DAILY Qty: 7 RF: 0 (DME) Oxygen Home Liters Per Minute See Rx Instructions .Route Qty: 4 RF: 0 Discharge Orders: Discharge Order (Routine); Ordered 03/01/21 Ordered By: Freddie Mendoza Admission Data Admit Date/Time: 02/25/21 17:18 Attending Provider: Freddie Mendoza Admit Provider: Zack Gordon Primary Care Provider: PCP,ANTOINETTE Coding Level of Care Code D/C DAY MANAGEMENT >30 MINS Diagnoses Acute respiratory failure with hypoxia J96.01 COVID-19 U07.1 Transaminitis R74.01 Anxiety F41.9
[2021-03-03 02:56] LABS: Hepatitis A Antibody IgM NON-REACTIVE (NON-REACTIVE); Hepatitis B Core Antibody IgM NON-REACTIVE (NON-REACTIVE)
== END 2021-03-01 17:03 | disposition home or self-care (01) | DRG 177 ==
LOC: ED 15:49 → SUATTDRO 17:18 → EDINP 17:18 → 2E 19:39